=== PATIENT | male | born 2000 | race Caucasian/White ===

== ENCOUNTER 2019-03-03 03:17 | Emergency (ER) | payer BC ==
[2019-03-03] MEDS ORDERED: Morphine 4 MG/ML Syringe IM ONE (03:34)
--- NOTE | 2019-03-03 03:44 | EDM.PDOC ---
ED HPI GENERAL MEDICAL PROBLEM - General Chief Complaint: Upper Extremity Injury/Pain Stated Complaint: LT CLAVICLE HURTS Time Seen by Provider: 03/03/19 03:22 Source of Information: Reports: Patient, Family History Limitations: Reports: No Limitations - History of Present Illness INITIAL COMMENTS - FREE TEXT/NARRATIVE: HISTORY OF PRESENT ILLNESS: Patient is a 18 year old male who was playing hockey in [place] today and had left shoulder rammed by another player while his right shoulder went into the wall. Reports bilateral anterior rib pain, retrosternal chest pain, has left clavicle pain and right shoulder pain. Denies any other extremity pain. Denies any weakness or paresthesias. No head trauma or loss of consciousness. Has mild right trapezius pain but no midline neck pain. Denies any abdominal pain or dyspnea. REVIEW OF SYSTEMS: Other than the symptoms associated with the present events, the following is reported with regard to recent health: General: (-) fever. HENT: (-) congestion. Respiratory: (-) cough. Cardiovascular: (+) chest wall pain. GI: (-) abdominal pain. : (-) urinary complaints. Musculoskeletal: (+) left clavicle and right shoulder pain Endocrine: (-) generalized weakness. Neurological: (-) localized weakness. Skin: (-) rash PAST MEDICAL HISTORY: reviewed as per nursing notes SOCIAL HISTORY: reviewed as per nursing notes, MEDICATIONS: Per nurse's note ALLERGIES: Per nurse's note, reviewed by me PHYSICAL EXAMINATION: GENERALIZED APPEARANCE: well developed, well nourished in mild to moderate distress VITAL SIGNS: Per nurse's note, reviewed by me SKIN: Warm, dry; (-) cyanosis; (-) rash. HEAD: (-) scalp swelling, (-) tenderness. EYES: (-) conjunctival pallor, (-) scleral icterus. ENMT: (-) stridor; mucous membranes moist. NECK: (+) right paracervical tenderness. no midline tenderness. no step off or deformity. FROM without midline pain. (-) stiffness, CHEST AND RESPIRATORY: (-) rales, (-) rhonchi, (-) wheezes; breath sounds equal bilaterally. HEART AND CARDIOVASCULAR: (-) irregularity; (-) murmur, (-) gallop. ABDOMEN AND GI: Soft; (-) tenderness, (-) guarding, (-) rebound, (-) palpable masses, EXTREMITIES: (+) left clavicle pain and palpable deformity. anterior bilateral rib tenderness without step off or deformity. no crepitus. right posterior shoulder tenderness. FROM right shoulder. Left shoulder ROM limited secondary to clavicle pain. No left shoulder tenderness. remainder of LE and UE wnl. 2+ DP. cap refill <2 sec. sensation intact. (-) edema. NEURO AND PSYCH: Alert. Cranial nerves grossly intact; strength symmetric. gait steady DIAGNOSTICS: xray: read by radiologist,reviewed by myself. EMERGENCY DEPARTMENT COURSE AND TREATMENT: Patient's condition remained stable during Emergency Department evaluation. Based on history, physical exam, and diagnostic evaluation, the patient appears to have symptoms consistent with a contusion. There was some suspicion for fracture, however imaging was negative. The patient appears otherwise well without obvious other injury. I recommended rest, ice, and pain medication when necessary. If the pain is not improving after 72 hours I recommended a follow-up appointment for repeat examination and possible further imaging. PLAN AND FOLLOW-UP: Patient received written and verbal instructions regarding this condition. Return to ED immediately with any new or worsening symptoms. Follow up to be arranged by patient with pcp in 1-2 days for further evaluation. Given discharge precautions. Patient expressed verbal understanding. left collar Pain Score (Numeric/FACES): 8 - Related Data Allergies Allergy/AdvReac Type Severity Reaction Status Date / Time No Known Allergies Allergy Verified 03/03/19 03:27 Home Meds: Home Meds Cyclobenzaprine [Flexeril] 10 mg PO BID PRN #10 tab 03/03/19 [Rx] Ibuprofen [Motrin] 600 mg PO Q6H PRN #20 tab 03/03/19 [Rx] Past Medical History Cardiovascular History: Reports: None Respiratory History: Reports: None Gastrointestinal History: Reports: None Genitourinary History: Reports: None Neurological History: Reports: None Psychiatric History: Reports: None Endocrine/Metabolic History: Reports: None Hematologic History: Reports: None Immunologic History: Reports: None Oncologic (Cancer) History: Reports: None Dermatologic History: Reports: None - Infectious Disease History Infectious Disease History: Reports: None - Past Surgical History Head Surgeries/Procedures: Reports: None HEENT Surgical History: Reports: Adenoidectomy, Tonsillectomy Musculoskeletal Surgical History: Reports: Other (See Below) Other Musculoskeletal Surgeries/Procedures:: R ACL; broken bones Social & Family History - Family History Family Medical History: Noncontributory - Tobacco Use Smoking Status *Q: Never Smoker - Caffeine Use Caffeine Use: Reports: None - Recreational Drug Use Recreational Drug Use: No Review of Systems - Review of Systems Review Of Systems: See Below (see dictation) ED EXAM, GENERAL - Physical Exam Exam: See Below (see dictation) Course - Vital Signs Last Recorded V/S: Last Vital Signs Temp 96.3 F 03/03/19 03:27 Pulse 66 03/03/19 03:27 Resp 18 03/03/19 03:27 BP 116/62 03/03/19 03:27 Pulse Ox 97 03/03/19 03:27 - Orders/Labs/Meds Meds: Medications Discontinued Medications Generic Name Dose Route Start Last Admin Trade Name Freq PRN Reason Stop Dose Admin Morphine Sulfate 4 mg 03/03/19 03:34 03/03/19 04:08 Morphine IM 03/03/19 03:35 4 mg ONETIME ONE Administration Departure - Departure Time of Disposition: 05:21 Disposition: Home, Self-Care 01 Condition: Good Clinical Impression: Contusion of left clavicle, Contusion of shoulder, right, Rib contusion, Cervical strain - Discharge Information *PRESCRIPTION DRUG MONITORING PROGRAM REVIEWED*: Not Applicable *COPY OF PRESCRIPTION DRUG MONITORING REPORT IN PATIENT YAJAIRA: Not Applicable Instructions: Contusion, [id number] Referrals: Etienne Velez MD [Primary Care Provider] - Forms: ED Department Discharge Additional Instructions: The following information is given to patients seen in the emergency department who are being discharged to home. This information is to outline your options for follow-up care. We provide all patients seen in our emergency department with a follow-up referral. The need for follow-up, as well as the timing and circumstances, are variable depending upon the specifics of your emergency department visit. If you don't have a primary care physician on staff, we will provide you with a referral. We always advise you to contact your personal physician following an emergency department visit to inform them of the circumstance of the visit and for follow-up with them and/or the need for any referrals to a consulting specialist. The emergency department will also refer you to a specialist when appropriate. This referral assures that you have the opportunity for follow-up care with a specialist. All of these measure are taken in an effort to provide you with optimal care, which includes your follow-up. Under all circumstances we always encourage you to contact your private physician who remains a resource for coordinating your care. When calling for follow-up care, please make the office aware that this follow-up is from your recent emergency room visit. If for any reason you are refused follow-up, please contact the [facility] Emergency Department at and asked to speak to the emergency department charge nurse. Sepsis Event Note - Evaluation Sepsis Screening Result: No Definite Risk - Focused Exam Vital Signs: Vital Signs Temp Pulse Resp BP Pulse Ox 03/03/19 03:27 96.3 F 66 18 116/62 97 Date Exam was Performed: 03/03/19 Time Exam was Performed: 05:21
--- NOTE | 2019-03-03 05:07 | CR ---
INDICATION: Injury TECHNIQUE: Chest and four views of the bilateral ribs COMPARISON: None available FINDINGS/IMPRESSION: Cardiovascular and mediastinum: Upper limits of normal cardiac size which could be related to technique. Lungs and pleural spaces: Lungs are clear. No sign of infiltrate or mass. No sign of pleural effusion. No pneumothorax. Bones and soft tissues: No displaced rib fracture seen. A chronic mid left clavicular deformity. Dictated by Cortes Taveras MD @ 03/03/2019 5:05:16 AM Dictated by: Cortes Taveras MD @ 03/03/2019 05:05:24 (Electronically Signed)
--- NOTE | 2019-03-03 05:11 | CR ---
Indication: Injury Technique: Chest 1 view, and 4 views of the bilateral ribs Comparison: None Findings/Impression: Cardiovascular and mediastinum: Upper limits of normal cardiac size which could be related to technique. Lungs and pleural space: Lungs are clear. No sign of infiltrate or mass. No sign of pleural effusion. No pneumothorax. Bones and soft tissues: No displaced rib fracture seen. A chronic mid left clavicular deformity. Dictated by Cortes Taveras MD @ 03/03/2019 5:09:00 AM Dictated by: Cortes Taveras MD @ 03/03/2019 05:09:06 (Electronically Signed)
--- NOTE | 2019-03-03 05:13 | CR ---
Indication: Injury Technique: Two views of the right shoulder Comparison: None available Findings/Impression: Bones: Alignment is normal. No fractures or bone lesions. Joint spaces: Unremarkable. Soft tissues: Unremarkable. Dictated by Cortes Taveras MD @ 03/03/2019 5:11:58 AM Dictated by: Cortes Taveras MD @ 03/03/2019 05:12:04 (Electronically Signed)
[2019-03-03 05:31] VITALS: BP 105/62; PULSE 62
== END 2019-03-03 05:38 | disposition home or self-care (01) ==
LOC: MW.ED 03:17
DX: S16.1XXA Strain of muscle, fascia and tendon at neck level, initial encounter (principal); S40.011A Contusion of right shoulder, initial encounter; S40.012A Contusion of left shoulder, initial encounter; S20.211A Contusion of right front wall of thorax, initial encounter; S20.212A Contusion of left front wall of thorax, initial encounter; W50.0XXA Accidental hit or strike by another person, initial encounter; Y93.22 Activity, ice hockey
CPT/HCPCS: 71111; 73000; 73030; 96372; 99283; J2270

== ENCOUNTER 2019-04-27 08:12 | Day surgery (SDC) | payer BC ==
[~2019-04-27 08:12] MED LIST: Lactated Ringers 1,000 ML IV SCH
[2019-04-27] MEDS ORDERED: Propofol 200 MG/20 ML SDV ONE (08:38)
[2019-04-27] MEDS ORDERED: fentaNYL 100 MCG/2 ML SDV ONE (08:38)
[2019-04-27] MEDS ORDERED: Lidocaine 2% 5 ML SDV ONE (08:38)
[2019-04-27] MEDS ORDERED: Midazolam 1 MG/ML 2 ML SDV ONE (08:38)
--- NOTE | 2019-04-27 09:08 | PCM.PREANE ---
Preanesthetic Assessment - Anesthesia/Transfusion/Family Hx Anesthesia History: Prior Anesthesia Without Reaction Family History of Anesthesia Reaction: No Transfusion History: No Prior Transfusion(s) Intubation History: Unknown - Review of Systems General: No Symptoms Pulmonary: No Symptoms Cardiovascular: No Symptoms Gastrointestinal: No Symptoms Neurological: No Symptoms Other: Reports: None - Physical Assessment Vital Signs: Last Vital Signs Temp 36.6 C 04/27/19 08:55 Pulse 53 L 04/27/19 08:55 Resp 16 04/27/19 08:55 BP 95/40 L 04/27/19 08:55 Pulse Ox 94 L 04/27/19 08:55 Height: 5 ft 10 in Weight: 102.058 kg ASA Class: 2 Mental Status: Alert & Oriented x3 Airway Class: Mallampati = 1 Dentition: Reports: Normal Dentition Thyro-Mental Finger Breadths: 3 Mouth Opening Finger Breadths: 3 ROM/Head Extension: Full Lungs: Clear to Auscultation, Normal Respiratory Effort Cardiovascular: Regular Rate, Regular Rhythm - Allergies Allergies/Adverse Reactions: Allergies Allergy/AdvReac Type Severity Reaction Status Date / Time No Known Allergies Allergy Verified 04/27/19 08:53 - Blood Blood Available: No - Anesthesia Plan Pre-Op Medication Ordered: None - Acknowledgements Anesthesia Type Planned: General Anesthesia Pt an Appropriate Candidate for the Planned Anesthesia: Yes Alternatives and Risks of Anesthesia Discussed w Pt/Guardian: Yes Pt/Guardian Understands and Agrees with Anesthesia Plan: Yes PreAnesthesia Questionnaire HEENT History: Reports: Allergic Rhinitis Cardiovascular History: Reports: None Respiratory History: Reports: None Gastrointestinal History: Reports: None Genitourinary History: Reports: None Musculoskeletal History: Reports: Fracture Other Musculoskeletal History: hx of fx right thumb, left middle finger and left clavicle Neurological History: Reports: Concussion (from playing hokey), Migraines Other Neuro History: no migraines recently Psychiatric History: Reports: None Endocrine/Metabolic History: Reports: Obesity/BMI 30+ (BMI 32.3) Hematologic History: Reports: None Immunologic History: Reports: None Oncologic (Cancer) History: Reports: None Dermatologic History: Reports: None - Infectious Disease History Infectious Disease History: Reports: None - Past Surgical History Head Surgeries/Procedures: Reports: None HEENT Surgical History: Reports: Adenoidectomy, Tonsillectomy Musculoskeletal Surgical History: Reports: Other (See Below) Other Musculoskeletal Surgeries/Procedures:: hx of Right ACL repair - SUBSTANCE USE Smoking Status *Q: Never Smoker Recreational Drug Use History: No - HOME MEDS Home Medications: Home Meds . [No Known Home Meds] 04/01/19 [History] - CURRENT (IN HOUSE) MEDS Current Meds: Current Medications Lactated Ringer's (Ringers, Lactated) 1,000 mls @ 125 mls/hr IV ASDIRECTED GRICELDA Last Admin: 04/27/19 08:53 Dose: 125 mls/hr Discontinued Medications Fentanyl (Sublimaze) Confirm Administered Dose 100 mcg .ROUTE .STK-MED ONE Stop: 04/27/19 08:39 Lidocaine (Xylocaine-Mpf 2%) Confirm Administered Dose 5 ml .ROUTE .STK-MED ONE Stop: 04/27/19 08:39 Midazolam HCl (Versed 1 Mg/Ml) Confirm Administered Dose 2 mg .ROUTE .STK-MED ONE Stop: 04/27/19 08:39 Propofol (Diprivan 20 Ml) Confirm Administered Dose 200 mg .ROUTE .STK-MED ONE Stop: 04/27/19 08:39
[2019-04-27] MEDS ORDERED: Atropine 0.1 MG/ML 10 ML Syringe IVPUSH PRN ×2 (11:13)
[2019-04-27] MEDS ORDERED: Albuterol 0.083% 2.5 MG/3 ML Neb Soln NEB PRN (11:13)
[2019-04-27] MEDS ORDERED: Naloxone 0.4 MG/ML Syringe IVPUSH PRN (11:13)
[2019-04-27] MEDS ORDERED: 50% Dextrose in Water 50 ML Syringe IVPUSH PRN (11:13)
[2019-04-27] MEDS ORDERED: fentaNYL 100 MCG/2 ML SDV IVPUSH PRN (11:13)
[2019-04-27] MEDS ORDERED: EPINEPHrine 1:10,000 1 MG/10 ML Syringe IVPUSH PRN (11:13)
[2019-04-27] MEDS ORDERED: Rocuronium 100 MG/10 ML Syringe ONE (11:32)
[2019-04-27] MEDS ORDERED: Ondansetron 4 MG/2 ML SDV ONE (11:33)
[2019-04-27] MEDS ORDERED: Ketorolac 30 MG/ML SDV ONE (11:33)
[2019-04-27] MEDS ORDERED: Glycopyrrolate 0.2 MG/ML SDV ONE ×2 (11:35)
[2019-04-27] MEDS ORDERED: Morphine 10 MG/ML Syringe IVPUSH PRN (11:55)
[2019-04-27] MEDS ORDERED: Acetaminophen/HYDROcodone 325-5 MG Tab PO PRN (11:55)
[2019-04-27] MEDS ORDERED: Ondansetron 4 MG/2 ML SDV IVPUSH PRN (11:55)
[2019-04-27] MEDS ORDERED: Lactated Ringers 1,000 ML IV SCH (12:00)
--- NOTE | 2019-04-27 12:00 | PCM.OPNOTE ---
- General Post-Op/Procedure Note Date of Surgery/Procedure: 04/27/19 Operative Procedure(s): Incision, drainage and marsupialization chronic pilonidal cyst & sinus Pre Op Diagnosis: Chronic pilonidal cyst & sinus Post-Op Diagnosis: Same Anesthesia Technique: General ET Tube (ASA II) Primary Surgeon: Maikol Quick Fluid Replacement, Intraop: 500 EBL in mLs: 25 Condition: Good Free Text/Narrative:: DICTATION 520457 CPT CODE 39963
--- NOTE | 2019-04-27 12:12 | OR ---
SURGEON: Maikol Quick M.D. DATE OF PROCEDURE: 04/27/2019 OPERATION PERFORMED: Incision and drainage with marsupialization of chronic pilonidal cyst and sinus. PRIMARY SURGEON: Maikol Quick MD ANESTHESIA: General endotracheal. ASA CLASSIFICATION: II. PREOPERATIVE DIAGNOSIS: Chronic pilonidal cyst and sinus. POSTOPERATIVE DIAGNOSIS: Chronic pilonidal cyst and sinus. ESTIMATED BLOOD LOSS: 25 mL. INTRAOPERATIVE FLUID REPLACEMENT: 500 mL of crystalloid. ASA CLASSIFICATION: II. DESCRIPTION OF PROCEDURE: The patient was taken to the operating room, kept on the transfer cart in the supine position. Following satisfactory attainment of general endotracheal anesthesia, he was positioned on the operating table in the prone position. Care was taken to pad all bony prominences. The surgical site was then prepped with Betadine solution and sterile drapes were applied. Grooved director was placed into the granulation tissue on the left side of the buttock superiorly. This tracked down inferiorly to the midline. Incision was made directly over this and multiple sinuses were identified with hair down at the base of the wound. The incision was then extended through the entire length of the pilonidal area to open up all the clefts that were present. Once that was accomplished, hemostasis was obtained with the use of electrocautery. The wound was then curetted out to remove all granulation tissue. Bleeding sites were electrocoagulated. Once that was all accomplished, the wound was irrigated with sterile saline solution and all fluid aspirated. The wound edges were then basted with running locked 3-0 chromic. The wound was then packed open using Adaptic gauze, moistened 2-inch Gertrude, covered with an ABD, and held in place with tape and mesh panties. The patient was then placed on the transfer cart in the supine position. Following emergence from anesthesia and extubation, he was taken to recovery room in satisfactory condition. NATALIIA / IZABEL /[id number]
--- NOTE | 2019-04-27 12:38 | PCM.POSTAN ---
POST ANESTHESIA ASSESSMENT - MENTAL STATUS Mental Status: Alert, Oriented - VITAL SIGNS Vital Signs: Last Vital Signs Temp 36.6 C 04/27/19 08:55 Pulse 48 L 04/27/19 12:15 Resp 12 04/27/19 12:15 BP 102/61 04/27/19 12:09 Pulse Ox 97 04/27/19 12:15 - RESPIRATORY Respiratory Status: Respiratory Rate WNL, Airway Patent, O2 Saturation Stable - CARDIOVASCULAR CV Status: Pulse Rate WNL, Blood Pressure Stable - GASTROINTESTINAL GI Status: No Symptoms - PAIN Pain Score: 3 - POST OP HYDRATION Hydration Status: Adequate & Stable - OBSERVATIONS Free Text/Narrative:: No anesthesia problems.
--- NOTE | 2019-04-27 13:14 | PCM48HPAN ---
Post Anesthesia Note - EVALUATION WITHIN 48HRS OF ANESTHETIC Vital Signs in Normal Range: Yes Patient Participated in Evaluation: Yes Respiratory Function Stable: Yes Airway Patent: Yes Cardiovascular Function Stable: Yes Hydration Status Stable: Yes Pain Control Satisfactory: Yes Nausea and Vomiting Control Satisfactory: Yes Mental Status Recovered: Yes Vital Signs: Last Vital Signs Temp 36.6 C 04/27/19 08:55 Pulse 48 L 04/27/19 12:15 Resp 12 04/27/19 12:15 BP 102/61 04/27/19 12:09 Pulse Ox 97 04/27/19 12:15 - COMMENTS/OBSERVATIONS Free Text/Narrative:: No anesthesia problems
[2019-04-27 14:06] VITALS: BP 98/62; PULSE 46
== END 2019-04-27 13:23 | disposition home or self-care (01) ==
LOC: MW.SDS 08:12
PROVIDERS: ATTEND Surgery
DX: L05.01 Pilonidal cyst with abscess (principal); L05.02 Pilonidal sinus with abscess; E66.3 Overweight; Z87.820 Personal history of traumatic brain injury; Z68.31 Body mass index [BMI] 31.0-31.9, adult
CPT/HCPCS: 11770; 88304; J1885; J2001; J2250; J2405; J2704; J3010; J3490; J7120; 00300

== ENCOUNTER 2019-08-02 14:50 | Emergency (ER) | payer BC ==
--- NOTE | 2019-08-02 16:00 | EDM.PDOC ---
ED HPI GENERAL MEDICAL PROBLEM - General Chief Complaint: Lower Extremity Injury/Pain Stated Complaint: LACERATION ON LEG Time Seen by Provider: 08/02/19 14:50 Source of Information: Reports: Patient History Limitations: Reports: No Limitations - History of Present Illness INITIAL COMMENTS - FREE TEXT/NARRATIVE: This patient is a 18-year-old male with no past medical history presenting with injuries to the leg. About 30 minutes prior to arrival, the patient was wrestling with his brother when he struck his right lower leg against a piece of furniture, sustaining a wound to the medial and lateral aspects of the right lower leg. No other injuries. Denies any numbness or weakness in the right lower extremity. Tetanus immunization status is up-to-date. No other complain ts. left lower leg Pain Score (Numeric/FACES): 7 - Related Data Allergies Allergy/AdvReac Type Severity Reaction Status Date / Time No Known Allergies Allergy Verified 08/02/19 14:57 Past Medical History - Past Health History Medical/Surgical History: Denies Medical/Surgical History HEENT History: Reports: Allergic Rhinitis Cardiovascular History: Reports: None Respiratory History: Reports: None Gastrointestinal History: Reports: None Genitourinary History: Reports: None Musculoskeletal History: Reports: Fracture Other Musculoskeletal History: hx of fx right thumb, left middle finger and left clavicle Neurological History: Reports: Concussion, Migraines Other Neuro History: no migraines recently Psychiatric History: Reports: None Endocrine/Metabolic History: Reports: Obesity/BMI 30+ Hematologic History: Reports: None Immunologic History: Reports: None Oncologic (Cancer) History: Reports: None Dermatologic History: Reports: None - Infectious Disease History Infectious Disease History: Reports: None - Past Surgical History Head Surgeries/Procedures: Reports: None HEENT Surgical History: Reports: Adenoidectomy, Tonsillectomy Musculoskeletal Surgical History: Reports: Other (See Below) Other Musculoskeletal Surgeries/Procedures:: hx of Right ACL repair Social & Family History - Family History Family Medical History: Noncontributory - Tobacco Use Smoking Status *Q: Current Every Day Smoker Years of Tobacco use: 1 Packs/Tins Daily: 1 - Caffeine Use Caffeine Use: Reports: Energy Drinks - Recreational Drug Use Recreational Drug Use: No Review of Systems - Review of Systems Review Of Systems: See Below Skin: Reports: Wound Neurological: Denies: Numbness, Weakness ED EXAM, GENERAL - Physical Exam Exam: See Below Free Text/Narrative:: Vital signs reviewed. Nursing notes reviewed. Constitutional: Awake, alert, non-distressed. Head: Normocephalic, atraumatic. Eyes: EOMI, conjunctiva normal, no discharge, no scleral icterus. Ears, Nose, Throat: External ears and nose normal, moist oral mucosa. Cardiovascular: 2+ radial pulse, capillary refill less than 2 seconds. Pulmonary: normal work of breathing, no accessory muscle use. Musculoskeletal: No deformities. Integumentary: Appropriate color for ethnicity, warm, dry, no pallor or jaundice, no rash. 2.5 x 1.5 cm rectangular shaped wound to the medial aspect of the right lower leg that is not amenable to closure given the degree of tissue loss. On the lateral side of the right lower leg, there is an approxi mately 1.5 cm curvilinear laceration. Neurologic: Alert, answering questions appropriately, normal speech, no facial droop, moving all extremities well. Psychiatric: Appropriate mood and affect, normal thought process. ED TRAUMA EXTREMITY PROCEDURES - Laceration/Wound Repair Right Lateral Leg Lac/Wound Length In cm: 1.5 Appearance: Superficial Distal NVT: Neuro & Vascular Intact Anesthetic Type: Local Local Anesthesia - Lidocaine (Xylocaine): 0.5% Plain Local Anesthetic Volume: 2cc Skin Prep: Saline Exploration/Debridement/Repair: Wound Explored, In a Bloodless Field, No Foreign Material Found Closed With: Sutures Suture Size: 4-0 # of Sutures: 3 Tetanus Status Addressed: Yes (Up to date) Complications: No Course - Vital Signs Text/Narrative:: 18-year-old male presenting with wounds to the right lower leg. Tetanus immunization status up-to-date. No other injuries. Underwent irrigation, anesthesia, and laceration repair as detailed in procedure note. The wound to the medial aspect of the right lower leg has tissue loss and is not amenable to closure/repair. It will be bandaged and allowed to heal by secondary intention. This was uncomplicated. Stable to discharge home. Suture removal in 10 to 14 days. Plan: Patient is stable to discharge home with outpatient primary care follow- up. Strict emergency department return precautions were provided, patient indicated understanding. All questions were answered prior to departure. Discharged in good condition. Last Recorded V/S: Last Vital Signs Temp 36.3 C 08/02/19 14:57 Pulse 100 08/02/19 14:57 Resp 18 08/02/19 14:57 BP 129/77 08/02/19 14:57 Pulse Ox 97 08/02/19 14:57 - Orders/Labs/Meds Orders: Active Orders 24 hr Category Date Time Status Procedure Tray at Bedside [RC] ASDIRECTED Care 08/02/19 15:10 Active Meds: Medications Discontinued Medications Generic Name Dose Route Start Last Admin Trade Name Tete PRN Reason Stop Dose Admin Lidocaine HCl 5 ml 08/02/19 15:38 08/02/19 15:44 Xylocaine-Mpf 1% INJECT 08/02/19 15:39 5 ml ONETIME ONE Administration Departure - Departure Time of Disposition: 15:50 Disposition: Home, Self-Care 01 Condition: Good Clinical Impression: Laceration of right leg excluding thigh Qualifiers: Encounter type: initial encounter Qualified Code(s): S81.811A - Laceration without foreign body, right lower leg, initial encounter - Discharge Information *PRESCRIPTION DRUG MONITORING PROGRAM REVIEWED*: Not Applicable *COPY OF PRESCRIPTION DRUG MONITORING REPORT IN PATIENT YAJAIRA: Not Applicable Instructions: Sutures, Suzi, or Adhesive Wound Closure, Sutured Wound Care Referrals: Etienne Velez MD [Primary Care Provider] - 1 Week (As needed) Additional Instructions: Thank you for choosing the [facility] emergency department in [place] for your medical needs today. It was a pleasure caring for you. You were seen in the emergency department for wounds to your leg. Sutures were placed in 1 of the lacerations. The other wound has tissue loss and cannot be closed with sutures without causing further injury or tissue . You need to return to ER in 10 to 14 days to have your sutures removed, they are not absorbable. I recommend [id number] extra strength acetaminophen (1000 mg every 6 hours) and ibuprofen (400 mg every 6 hours) to help treat your pain. Please return the emergency department immediately if your symptoms worsen or if you feel worse. The following information is given to patients seen in the emergency department who are being discharged. This information is to outline your options for follow-up care. We provide all patients seen in our emergency department with a follow-up referral. The need for follow-up, as well as the timing and circumstances, are variable depending upon the specifics of your emergency department visit. If you don't have a primary care physician on staff, we will provide you with a referral. We always advise you to contact your personal physician following an emergency department visit to inform them of the circumstance of the visit and for follow-up with them and/or the need for any referrals to a consulting speci alist. The emergency department will also refer you to a specialist when appropriate. This referral assures that you have the opportunity for follow-up care with a specialist. All of these measure are taken in an effort to provide you with optimal care, which includes your follow-up. Under all circumstances we always encourage you to contact your private physician who remains a resource for coordinating your care. When calling for follow-up care, please make the office aware that this follow-up is from your recent emergency room visit. If for any reason you are refused follow-up, please contact the [facility] Emergency Department at and asked to speak to the emergency department charge nurse. If you do not have a primary care physician that is caring for you, you can contact these clinics below to set up an appointment to establish care: [facility] [address] [place] [id number] [address] Sepsis Event Note (ED) - Evaluation Sepsis Screening Result: No Definite Risk - Focused Exam Vital Signs: Vital Signs Temp Pulse Resp BP Pulse Ox 08/02/19 14:57 36.3 C 100 18 129/77 97 - My Orders Last 24 Hours: My Active Orders 08/02/19 15:10 Procedure Tray at Bedside [] ASDIRECTED - Assessment/Plan Last 24 Hours: My Active Orders 08/02/19 15:10 Procedure Tray at Bedside [] ASDIRECTED
[2019-08-02 19:01] VITALS: BP 111/72; PULSE 70
== END 2019-08-02 16:22 | disposition home or self-care (01) ==
LOC: MW.ED 14:50
DX: S81.811A Laceration without foreign body, right lower leg, initial encounter (principal); E66.9 Obesity, unspecified; Z68.29 Body mass index [BMI] 29.0-29.9, adult; F17.210 Nicotine dependence, cigarettes, uncomplicated; W22.8XXA Striking against or struck by other objects, initial encounter; Y93.72 Activity, wrestling
CPT/HCPCS: 12001; 99283; J2001; 99282

== ENCOUNTER 2020-09-19 08:25 | Day surgery (SDC) | payer BC ==
[2020-09-19] MEDS: Lactated Ringers 1,000 ML IV SCH ×2 (08:45→12:44)
--- NOTE | 2020-09-19 09:06 | PCM.PREANE ---
Preanesthetic Assessment - Procedure Proposed Procedure: I&D Pilonidal cyst abscess - Anesthesia/Transfusion/Family Hx Anesthesia History: Prior Anesthesia Without Reaction Family History of Anesthesia Reaction: No Transfusion History: No Prior Transfusion(s) Intubation History: Unknown - Review of Systems General: No Symptoms Pulmonary: No Symptoms (VAPES DAILY) Cardiovascular: No Symptoms Gastrointestinal: No Symptoms Neurological: No Symptoms Other: Reports: None - Physical Assessment NPO Status Date: 09/18/20 NPO Status Time: 22:00 Vital Signs: Last Vital Signs Temp 78.8 F L 09/19/20 08:40 Pulse 54 L 09/19/20 08:40 Resp 16 09/19/20 08:40 BP 122/66 09/19/20 08:40 Pulse Ox 98 09/19/20 08:40 Height: 5 ft 10 in Weight: 106.141 kg (Overweight) ASA Class: 2 Mental Status: Alert & Oriented x3 Airway Class: Mallampati = 2 Dentition: Reports: Normal Dentition Thyro-Mental Finger Breadths: 3 Mouth Opening Finger Breadths: 3 ROM/Head Extension: Full Lungs: Clear to Auscultation, Normal Respiratory Effort Cardiovascular: Regular Rate, Regular Rhythm - Allergies Allergies/Adverse Reactions: Allergies Allergy/AdvReac Type Severity Reaction Status Date / Time No Known Allergies Allergy Verified 09/16/20 10:48 - Acknowledgements Anesthesia Type Planned: General Anesthesia Pt an Appropriate Candidate for the Planned Anesthesia: Yes Alternatives and Risks of Anesthesia Discussed w Pt/Guardian: Yes Pt/Guardian Understands and Agrees with Anesthesia Plan: Yes PreAnesthesia Questionnaire - Past Health History Medical/Surgical History: Denies Medical/Surgical History HEENT History: Reports: Allergic Rhinitis Cardiovascular History: Reports: None Respiratory History: Reports: None Gastrointestinal History: Reports: None Genitourinary History: Reports: None Musculoskeletal History: Reports: Fracture Other Musculoskeletal History: hx of fx right thumb, left middle finger and left clavicle Neurological History: Reports: Concussion, Migraines Other Neuro History: no migraines recently Psychiatric History: Reports: None Endocrine/Metabolic History: Reports: Obesity/BMI 30+ Hematologic History: Reports: None Immunologic History: Reports: None Oncologic (Cancer) History: Reports: None Dermatologic History: Reports: None - Infectious Disease History Infectious Disease History: Reports: None - Past Surgical History Head Surgeries/Procedures: Reports: None HEENT Surgical History: Reports: Adenoidectomy, Tonsillectomy Cardiovascular Surgical History: Reports: None GI Surgical History: Reports: Other (See Below) Other GI Surgeries/Procedures: I&D of pilonidial cyst in the past Male Surgical History: Reports: None Musculoskeletal Surgical History: Reports: Other (See Below) Other Musculoskeletal Surgeries/Procedures:: hx of Right ACL repair - SUBSTANCE USE Tobacco Use Status *Q: Current Every Day Tobacco User Tobacco Use Within Last Twelve Months: Vaping Recreational Drug Use History: No - HOME MEDS Home Medications: Home Meds . [No Known Home Meds] 08/02/19 [History] - CURRENT (IN HOUSE) MEDS Current Meds: Current Medications Lactated Ringer's (Ringers, Lactated) 1,000 mls @ 125 mls/hr IV ASDIRECTED [facility] Last Admin: 09/19/20 08:45 Dose: 125 mls/hr Documented by:
[2020-09-19] MEDS ORDERED: Morphine 10 MG/ML Syringe IVPUSH PRN ×2 (09:16→11:43)
[2020-09-19] MEDS ORDERED: HYDROmorphone 1 MG/ML Syringe IVPUSH PRN (09:16)
[2020-09-19] MEDS ORDERED: fentaNYL 100 MCG/2 ML SDV IVPUSH PRN (09:16)
[2020-09-19] MEDS ORDERED: Albuterol 0.083% 2.5 MG/3 ML Neb Soln NEB PRN (09:16)
[2020-09-19] MEDS ORDERED: Naloxone 0.4 MG/ML Syringe IVPUSH PRN (09:16)
[2020-09-19] MEDS ORDERED: Metoclopramide 10 MG/2 ML SDV IVPUSH PRN (09:16)
[2020-09-19] MEDS ORDERED: Ondansetron 4 MG/2 ML SDV IVPUSH PRN (09:16)
[2020-09-19] MEDS ORDERED: Bupivacaine 0.5% 30 ML SDV ONE (09:53)
[2020-09-19] MEDS ORDERED: Sugammadex Sodium 200 MG/2 ML VIAL ONE (10:17)
[2020-09-19] MEDS ORDERED: Ondansetron 4 MG/2 ML SDV ONE (10:17)
[2020-09-19] MEDS ORDERED: Dexamethasone 4 MG/ML 5 ML MDV ONE (10:17)
[2020-09-19] MEDS ORDERED: Glycopyrrolate 0.2 MG/ML SDV ONE (10:17)
[2020-09-19] MEDS ORDERED: Ketorolac 30 MG/ML SDV ONE (10:17)
[2020-09-19] MEDS ORDERED: Rocuronium Bromide 50 MG/5 ML Syringe ONE (10:17)
[2020-09-19] MEDS ORDERED: Propofol 200 MG/20 ML SDV ONE (10:17)
[2020-09-19] MEDS ORDERED: Ketamine 500 mg/10 ML MDV ONE (10:20)
[2020-09-19] MEDS ORDERED: fentaNYL 250 MCG/5 ML SDV ONE (10:22)
[2020-09-19] MEDS ORDERED: Acetaminophen 325 MG Tab PO PRN (11:43)
[2020-09-19] MEDS ORDERED: Acetaminophen/HYDROcodone 325-5 MG Tab PO PRN (11:43)
[2020-09-19] MEDS ORDERED: Lactated Ringers 1,000 ML IV SCH (11:45)
--- NOTE | 2020-09-19 11:47 | PCM.OPNOTE ---
- General Post-Op/Procedure Note Date of Surgery/Procedure: 09/19/20 Operative Procedure(s): Incision, drainage and marsupialization recurrent pilonidal cyst with abscess Pre Op Diagnosis: Recurrent pilonidal cyst with abscess Post-Op Diagnosis: Same Anesthesia Technique: General ET Tube (ASA II) Primary Surgeon: Maikol Quick Fluid Replacement, Intraop: 900 EBL in mLs: 5 Condition: Good Free Text/Narrative:: DICTATION [id number]
--- NOTE | 2020-09-19 11:58 | PCM.POSTAN ---
POST ANESTHESIA ASSESSMENT - MENTAL STATUS Mental Status: Alert, Oriented - VITAL SIGNS Vital Signs: Last Vital Signs Temp 36.4 C 09/19/20 11:47 Pulse 76 09/19/20 11:52 Resp 18 09/19/20 11:52 BP 114/65 09/19/20 11:52 Pulse Ox 99 09/19/20 11:52 - RESPIRATORY Respiratory Status: Respiratory Rate WNL, Airway Patent, O2 Saturation Stable - CARDIOVASCULAR CV Status: Pulse Rate WNL, Blood Pressure Stable - GASTROINTESTINAL GI Status: No Symptoms - POST OP HYDRATION Hydration Status: Adequate & Stable
--- NOTE | 2020-09-19 11:59 | PCM48HPAN ---
Post Anesthesia Note - EVALUATION WITHIN 48HRS OF ANESTHETIC Vital Signs in Normal Range: Yes Patient Participated in Evaluation: Yes Respiratory Function Stable: Yes Airway Patent: Yes Cardiovascular Function Stable: Yes Hydration Status Stable: Yes Pain Control Satisfactory: Yes Nausea and Vomiting Control Satisfactory: Yes Mental Status Recovered: Yes Vital Signs: Last Vital Signs Temp 36.4 C 09/19/20 11:47 Pulse 76 09/19/20 11:52 Resp 18 09/19/20 11:52 BP 114/65 09/19/20 11:52 Pulse Ox 99 09/19/20 11:52
[2020-09-19 12:57] VITALS: BP 98/52; PULSE 66
--- NOTE | 2020-09-19 17:29 | OR ---
SURGEON: Maikol Quick M.D. DATE OF PROCEDURE: 09/19/2020 OPERATION PERFORMED: Incision and drainage and marsupialization of recurrent pilonidal cyst, sinus and abscess. PRIMARY SURGEON: Maikol Quick M.D. ANESTHESIA: General endotracheal. ASA CLASSIFICATION: II. PREOPERATIVE DIAGNOSIS: Recurrent pilonidal cyst with abscess. POSTOPERATIVE DIAGNOSIS: Recurrent pilonidal cyst with abscess. ESTIMATED BLOOD LOSS: 5 mL. INTRAOPERATIVE FLUID REPLACEMENT: 900 mL of crystalloid. DESCRIPTION OF PROCEDURE: The patient was taken to the operating room and kept on the transfer cart in a supine position. Following satisfactory attainment of general endotracheal anesthesia, the patient was turned prone onto the operating table with care taken to pad all bony prominences. Once that was accomplished and with sequential compression boots in place, the buttocks were taped apart. Time-out was called for appropriate identification of the patient and procedure. The surgical site was then prepped with Betadine solution, and sterile drapes were applied. A sterile probe was placed through the opening under the skin and directed along the sinus tract. This was then sharply incised and all loculations were broken up. The wound was curetted removing all granulation tissue. No purulent drainage was noted today. Elliptical excision of scar tissue was carried out to make sure that there were no missed sinus tracts. Once that was accomplished, hemostasis was obtained with the use of electrocautery. The wound was then irrigated with sterile saline solution. 10 mL of 0.5% plain Marcaine were injected into the wound. Once that was accomplished, Adaptic was placed into the base of the wound. The wound was further packed open with 1 inch plain Nu Gauze. The surgical site was then dressed with fluffs and ABD and taped securely in place. The patient was then returned to the supine position on the cart and following emergence from anesthesia and extubation, was taken to recovery room in stable condition. NATALIIA / IZABEL /[id number] NASIMA
== END 2020-09-19 12:55 | disposition home or self-care (01) ==
LOC: MW.SDS 08:25
PROVIDERS: ATTEND Surgery
DX: L05.01 Pilonidal cyst with abscess (principal); E66.3 Overweight; Z86.16 Personal history of COVID-19; Z68.32 Body mass index [BMI] 32.0-32.9, adult; F17.210 Nicotine dependence, cigarettes, uncomplicated
CPT/HCPCS: 11770; A9270; J0131; J1100; J1885; J2405; J2704; J3010; J3490; J7120; 00300; 88304